=== PATIENT | male | born 2000 | race Caucasian/White ===

== ENCOUNTER 2023-02-11 09:17 | Emergency (ER) | payer BC, OTHER ==
[~2023-02-11] VITALS: Ht 172.7 cm; Wt 74.8 kg
[2023-02-11] MEDS ORDERED: POLYTRIM EYE DR10 M1 LEFTEYE (10:22)
[2023-02-11 10:35] VITALS: BP 128/73
== END 2023-02-11 10:35 | disposition home or self-care (01) ==
LOC: ER 09:17
DX: H10.89 Other conjunctivitis (principal)
CPT/HCPCS: 99282